=== PATIENT | female | born 1955 | race Caucasian/White ===

== ENCOUNTER 2020-09-29 12:18 | Outpatient (CLI) | payer SELFPAY ==
[2020-09-29 13:32] LABS: SARS-CoV-2 Ag Negative (Negative)
== END 2020-09-29 12:19 | disposition home or self-care (01) ==
LOC: CHSLAB 12:21
PROVIDERS: PCP Family Medicine; Visit Provider Family Medicine
DX: Z20.828 Contact with and (suspected) exposure to other viral communicable diseases (principal)
CPT/HCPCS: 87426

== ENCOUNTER 2021-11-01 15:51 | Outpatient (RCR) | payer MEDICARE, SELFPAY ==
--- NOTE | 2021-11-01 17:21 | PTOPEVAL ---
Thank you for referring Wendy Myles to [facility] [place].? The patient is scheduled to be seen for therapy? ___3_x/week for 12 visits. Please review, sign, date and return this plan of care MAVERICK. I agree with and certify that the following plan of care is medically necessary. Referring Physician Date Admitting Provider: Attending Provider: Rosalina Solis, BACTERIOLOGIST INDUSTRIAL Referring Provider: *PT Outpatient Evaluation Start: 11/01/21 16:03 Freq: Status: Active Protocol: Document 11/01/21 16:03 VANESSA (Rec: 11/01/21 17:20 VANESSA [id number]) Therapy Assessment Status Assessment Status Assessment Status Evaluation Evaluation Information Problem Diagnosis closed fracture of distal end of the right fibula Onset 09/17/21 Subjective Information Pt. reports on 09/17/21 she Query Text:As Reported By Patient/ fell down her steps while Family trying to see an eclipse outside. She reports that she was in a cast until 10/18/21. She reports she was non WB for this time. She reports that most pain is through the right knee with WB. She reports that she does take Tylenol for pain. She reports that her goal for therpay is to be able to walk normally. Prior Level of Function Activity Level (Last 3 Months) Occupation daycare Hand Dominance Right Activity of Daily Living Ability Independent Indoor/Home Mobility Independent Community Mobility Independent Stairs Ability Independent Functional Cognition (Planning, Shopping Independent , Taking Medications) Cooking Yes Cleaning Yes Laundry Yes Shopping Yes Driving Yes Comments Additional Prior Level of Function Pt. manages a daycare. She is Comments currently walking with crutches. Pain Assessment Timing of Pain Assessment Timing of Pain Assessment Pre-Treatment Pain Scale Pain Scale Used Numeric (1 - 10) Self Report Pain Assessment Right Ankle(s) Reported Pain Level 3 Right Knee(s) Reported Pain Level 10 Pain Description Aching,Burning Greatest Pain Intensity 10 Pain Score Pain Score 10,3: Self Report Interventions Used Interventions Used By Clinicians Activity or ADL's,Exercise Lower
--- NOTE | 2021-12-13 09:24 | PCPTNOTE ---
Mrs. Myles attended a total of 4 treatment sessions from 11/01/21 to 11/09/21. She contacted the clinic via telephone stating that she was doing much better and request discharge. Refer to pt. last daily note for discharge status.
== END 2021-11-09 10:37 | disposition home or self-care (01) ==
LOC: CHSPT 15:51
PROVIDERS: PCP Family Medicine; Visit Provider Nurse Practitioner Family
DX: S82.831D Other fracture of upper and lower end of right fibula, subsequent encounter for closed fracture with routine healing (principal)
CPT/HCPCS: 97014; 97110; 97140; 97161; G0283

== ENCOUNTER 2024-06-03 02:00 | Emergency (ER) | payer MEDICARE, SELFPAY ==
[2024-06-03] VITALS (56 sets, daily range): BP systolic 67–165; BP diastolic 58–121; PULSE 81–128; RESP 12–27; TEMP 36.3; O2SAT 92–99
--- NOTE | ~2024-06-03 | XR_ITS ---
Clinical Indication: Chest pain PA and lateral views of the chest: Comparison: 05/25/2008 Findings: The lungs are clear, without evidence of focal consolidation or pleural effusion. Cardiome diastinal silhouette is within normal limits. Bones and soft tissues are unremarkable. Impression: Normal chest. Reviewed, dictated and finalized at location . Impression: Normal chest.
--- NOTE | ~2024-06-03 | CT_ITS ---
Clinical Indication: Chest pain CT Scan of the Chest with Contrast: Technique: Contiguous sections were acquired throughout the chest after intravenous administration of 100 cc of Omnipaque 350. Dose reduction technique was used on this scan by utilizing automated expos ure control and iterative reconstruction technique. The dose-length product (DLP) was 414.64 mGy-cm. Findings: There is no evidence of any significant mediastinal, hilar or axillary lymphadenopathy. There is no f illing defect in the pulmonary arterial tree to suggest pulmonary embolus. There is no evidence of ao rtic dissection or aneurysm. There is no evidence of pleural or pericardial effusion. The lungs are clear, aside from probable minimal dependent hypoventilatory/atelectatic changes. Images through the upper abdomen reveal no abnormalities. Impression: No evidence of pulmonary embolus, aortic dissection, or aortic aneurysm. No significant pulmonary abnormality evident. Reviewed, dictated and finalized at [facility]. Impression: No evidence of pulmonary embolus, aortic dissection, or aortic aneurysm. No significant pulmonary abnormality evident.
--- NOTE | 2024-06-03 02:02 | ECG_ITS ---
Test Date: 2024-06-03 02:13:35 Measurements Intervals [place] Rate: 104 P: 41 [place]: 153 QRS: -2 QRSD: 138 T: 130 QT: 371 QTc: 490 Interpretive Statements SINUS TACHYCARDIA WITH OCCASIONAL VENTRICULAR PREMATURE COMPLEXES LEFT BUNDLE BRANCH BLOCK [120+ ms QRS DURATION, 80+ ms Q/S IN V1/V2, 85+ ms R IN I/aVL/V5/V6] No previous ECG available for comparison Electronically Signed On 06-04-2024 14:32:02 CDT by Kimmy Torres M.D.
--- NOTE | 2024-06-03 02:04 | ED.CHESTPAIN ---
HPI - Chest Pain General Chief Complaint: Chest Pain Stated Complaint: chest pain Time Seen by Provider: 06/03/24 02:02 Source: patient Mode of arrival: ambulatory Limitations: no limitations History of Present Illness HPI narrative: Patient is a 69-year-old female with some chest pain starting yesterday. It is on and off and happens in interior substernal chest wall and some pain in the midback. Patient has Wegners granulomatosis. MD complaint: chest pain Onset (ago): day(s) (2) Timing of current episode: episodic Prior episodes: Yes Onset: during rest, during exertion and awoke with symptoms Pain location: substernal Pain radiation: back Severity: moderate Pain scale (0-10): 6 Quality: tightness and sharp Relieving factors: nothing Exacerbating factors: nothing Associated symptoms: sense of impending doom Treatment prior to arrival: none Risk Factors Coronary artery disease risk factors: none Thoracic aortic dissection risk factors: none Related Data On Oral Contraceptives: No Home Medications Medication Instructions Recorded Confirmed levothyroxine 75 mcg tablet 75 mcg PO DAILY 06/03/24 06/03/24 liothyronine 5 mcg tablet 5 mcg PO BID 06/03/24 06/03/24 losartan 50 mg tablet 50 mg PO DAILY 06/03/24 06/03/24 omeprazole 20 mg capsule,delayed 20 mg PO DAILY 06/03/24 06/03/24 release Allergies Allergy/AdvReac Type Severity Reaction Status Date / Time DONI Inhibitors Allergy Intermediate cough Verified 05/06/13 12:22 Review of Systems Review of Systems: All systems reviewed & are unremarkable except as noted in HPI and below Constitutional: Constitutional: Reports no additional constitutional complaints Eyes: Eyes: Reports no additional eye complaints ENT: Reports system reviewed and no additional complaints, except as documented Cardiovascular: Cardiovascular: Reports no additional cardiovascular complaints Respiratory: Respiratory: Reports no additional respiratory complaints Gastrointestinal: Gastrointestinal: Reports no additional gastrointestinal complaints Genitourinary: Genitourinary: Reports no additional female genitourinary complaints Musculoskeletal: Musculoskeletal: Reports no additional musculoskeletal complaints Integumentary/Breasts: Skin/Breast: Reports system reviewed and no additional complaints, except as docu Neurologic: Reports system reviewed and no additional complaints, except as documented Psychiatric: Psychiatric: Reports no additional psychiatric complaints Endocrine: Endocrine: Reports no additional endocrine complaints Hematologic/Lymphatic: Hematologic/Lymphatic: Reports no additional hematologic/lymphatic complaints Allergic/Immunologic: Allergic/Immunologic: Reports no additional allergic/immunologic complaints Exam Const: General: healthy appearing Nutritional Appearance: well nourished Orientation/consciousness: patient oriented x3 HENMT: Head: normal to inspection Ears: external ears normal Face/Nose/Sinus: Normal external nose present Eyes: Conjunctivae: conjunctivae normal Pupils: Equal, round and reactive pupils present EOM: EOMs intact bilaterally Neck: Neck: normal visual inspection Chest: Chest palpation & inspection: normal inspection of the chest Resp: Effort & Inspection: normal respiratory effort and not labored Auscultation: clear to auscultation bilaterally Cardio: Rate: tachycardic Rhythm: regular rhythm Heart sounds: no murmurs GI: Inspection: non-distended Auscultation: normal bowel sounds and bowel sounds present : General: Yes bladder normal to palpation Back/Spine/Pelvis: Back: no CVA tenderness Skin: General skin exam: normal color Rashes: no rashes Wounds: no wounds Neuro: General: patient oriented x3 Cranial nerves: Yes Nystagmus not present Speech: normal speech Extrem: General: normal to inspection Psych: Mental Status: mental status grossly normal Affect: Anxious affect present Attitude: cooperative
[2024-06-03 02:38] LABS: Basophils Absolute Auto 0.04 K/mm3 (0.00-0.10); Basophils Percent Auto 0.5 % (0.0-1.0); Eosinophils Absolute Auto 0.18 K/mm3 (0.02-0.50); Eosinophils Percent Auto 2.4 % (1.0-6.0); Hematocrit 42.5 % (35.0-42.0); Hemoglobin 14.4 g/dL (11.7-13.8); Immature Granulocyte Absolute 0.02 K/mm3 (0.00-0.00); Immature Granulocyte Percent A 0.3 % (0.0-0.0); Lymphocytes Absolute Auto 2.36 K/mm3 (1.10-4.50); Lymphocytes Percent Auto 31.6 % (18.0-42.0); Mean Corpuscular HGB Conc 33.9 g/dL (32-36); Mean Corpuscular Hemoglobin 29.4 pg (27.0-31.0); Mean Corpuscular Volume 86.9 fL (78.0-102.0); Monocytes Absolute Auto 0.61 K/mm3 (0.10-0.90); Monocytes Percent Auto 8.2 % (2.0-11.0); Neutrophils Absolute Auto 4.27 K/mm3 (1.70-7.20); Platelet Count Result 293 K/mm3 (150-420); Red Blood Count 4.89 M/mm3 (4.20-5.40); Red Cell Distribution Width 12.6 % (11.6-14.4); White Blood Count 7.5 K/mm3 (4.8-10.8)
[2024-06-03] MEDS: NITROGLYCERIN SL 0.4 MG TABLET SUBLINGUAL (02:39)
--- NOTE | 2024-06-03 02:42 | PC.NURSE ---
Pt back from Xray, still c/o chest pain to Lt breast area. Pt given Nitro SL 0.4 mg as per order, explained POC to pt and wait times for labs. Pt stated understanding, call rosales at side, continuing to monitor.
[2024-06-03 02:55] LABS: D Dimer 0.42 mg/L (0.19-0.50); INR 0.9; Partial Thromboplastin Time 25.8 Sec (23.9-30.70); Prothrombin Time 10.2 Seconds (9.50-12.1)
[2024-06-03 03:43] LABS: Alanine Aminotransferase 14 U/L (6-35); Albumin Level 4.3 g/dL (3.5-5.1); Alkaline Phosphatase 89 U/L (38-126); Anion Gap 8 mmol/L (4-12); Aspartate Amino Transferase 37 U/L (14-36); Bilirubin,Total 0.8 mg/dL (0.2-1.3); Blood Urea Nitrogen 20 mg/dL (7-17); Calcium 9.8 mg/dL (8.4-10.2); Carbon Dioxide 25 mmol/L (22-30); Chloride 103 mmol/L (98-107); Estimated CRCL calculation 44 ml/min; Estimated Glomerular Filt Rate 49; Glucose 107 mg/dL (65-110); Lipase 170 U/L (23-300); Osmolality Calculated 284 mOsm/kg (285-295); Potassium 3.7 mmol/L (3.4-5.0); Sodium 136 mmol/L (137-145); Troponin I < 0.012 ng/mL (0.000-0.034)
[2024-06-03 04:42] LABS: NT Pro B Type Natriuretic Pept 678 pg/mL (19.9-100)
--- NOTE | 2024-06-03 04:42 | PC.NURSE ---
Addendum entered by Karina Parisi RN 06/03/24 06:50: Monitor shows SR w/ HR 86, VSS. Pt reports no pain at this time Original Note: Pt resting w/ lights dimmed, awaiting CT scan results, pt states pain is better, Monitor shows Afib w/ HR 86 at this time. VSS, call rosales at pt side.
--- NOTE | 2024-06-03 05:15 | PC.NURSE ---
Pt resting, continuing to monitor, Monitor shows Afib w/ rate controlled at 80. VSS at this time. Awaiting CT results and call rosales at pt side.
[2024-06-03 05:29] LABS: Magnesium 1.9 mg/dL (1.6-2.3)
--- NOTE | 2024-06-03 05:30 | PC.NURSE ---
Pt noted on monitor ST w/ LBBB and controlled HR at 80 at this time. Pt resting and continuing to await CT results.
--- NOTE | 2024-06-03 06:15 | PC.NURSE ---
POC discussed w/ pt and she wants transfer to processing lead at [place]. Monitor continues to show SR w/ LBBB and occasional PVC. Pt resting at this time, continuing to monitor.
[2024-06-03] MEDS: ASPIRIN 81 MG CHEWABLE TABLET 324 MG PO (06:41)
--- NOTE | 2024-06-03 07:08 | PC.NURSE ---
Report given to Justin Pappas and Justin Carr Pt resting, POC discussed for transfer and awaiting call back from [place].
--- NOTE | 2024-06-03 07:22 | ECG_ITS ---
Test Date: 2024-06-03 07:37:52 Measurements Intervals [place] Rate: 92 P: 25 [place]: 148 QRS: 42 QRSD: 137 T: 207 QT: 389 QTc: 483 Interpretive Statements SINUS RHYTHM LEFT BUNDLE BRANCH BLOCK [120+ ms QRS DURATION, 80+ ms Q/S IN V1/V2, 85+ ms R IN I/aVL/V5/V6] Compared to ECG 06/03/2024 02:13:35 NO SIGNIFICANT CHANGES Electronically Signed On 06-04-2024 14:33:04 CDT by Kimmy Torres M.D.
--- NOTE | 2024-06-03 07:38 | PC.NURSE ---
Spoke to Chetan in the kitchen to order regular breakfast tray for pt.
--- NOTE | 2024-06-03 07:56 | PC.NURSE ---
Pt resting comfortably. No concerns at this time.
--- NOTE | 2024-06-03 09:02 | PC.NURSE ---
Pt finished with her breakfast tray. Gave her glass of water. Discussed that we are waiting on bed at [place].
--- NOTE | 2024-06-03 11:22 | PC.NURSE ---
Pt resting comfortably, watching tv. No complaints at this time.
--- NOTE | 2024-06-03 12:47 | PC.NURSE ---
Pt resting comfortably. Family at bedside. Pt received lunch tray.
[2024-06-03 13:30] LABS: Troponin I < 0.012 ng/mL (0.000-0.034)
--- NOTE | 2024-06-03 14:16 | PC.NURSE ---
Pt ambulated to bathroom.No difficulties.
--- NOTE | 2024-06-03 14:33 | PC.NURSE ---
Moved pt to hospital bed for comfort. Son at bedside.
--- NOTE | 2024-06-03 16:50 | PC.NURSE ---
Pt resting comfortably. Son at bedside.
[2024-06-03 16:53] LABS: Troponin I < 0.012 ng/mL (0.000-0.034)
== END 2024-06-03 17:43 | disposition home or self-care (01) ==
PROVIDERS: Emergency Medicine; Emergency Provider Emergency Medicine; PCP Family Medicine
DX: I20.9 Angina pectoris, unspecified (principal); R94.31 Abnormal electrocardiogram [ECG] [EKG]; Z79.899 Other long term (current) drug therapy
CPT/HCPCS: 36415; 71046; 71275; 80053; 83690; 83735; 83880; 84484; 85025; 85380; 85610; 85730; 93005; 99284; A9270; Q9967

== ENCOUNTER 2024-11-05 12:45 | Emergency (ER) | payer MEDICARE, SELFPAY ==
[2024-11-05] VITALS (19 sets, daily range): BP systolic 86–121; BP diastolic 52–87; PULSE 71–99; RESP 11–22; TEMP 36.4; O2SAT 91–100
--- NOTE | ~2024-11-05 | CT_ITS ---
EXAMINATION: CT brain wo con DATE: 11/05/2024 12:58 INDICATION: Acute left eye blurriness. Vision change. TECHNIQUE: Computed tomography (CT) of the head was performed without intravenous contrast. The mA wa s adjusted according to patient size. Iterative reconstruction technique was employed. The dose-lengt h product was 681.00 mGy-cm. COMPARISON: None FINDINGS: There are scattered areas of low attenuation in the cerebral white matter, which is within normal limits for the patient's age. There is no intracranial hemorrhage, acute infarction, or abnorm al intracranial mass lesion. The ventricles are normal in size. There are likely changes of ocular le ns replacement surgeries. There is mucosal thickening in the paranasal sinuses. There is a small left mastoid effusion. IMPRESSION: 1. Normal aging brain. Reviewed, dictated and finalized at location A. E SPECIALIST IMPRESSION: 1. Normal aging brain.
--- NOTE | 2024-11-05 12:46 | ECG_ITS ---
Test Date: 2024-11-05 13:05:21 Measurements Intervals [place] Rate: 95 P: 93 [place]: 153 QRS: 74 QRSD: 86 T: 60 QT: 348 QTc: 438 Interpretive Statements SINUS RHYTHM WITH FREQUENT VENTRICULAR PREMATURE COMPLEXES ABNORMAL RHYTHM ECG Compared to ECG 06/03/2024 07:37:52 Ventricular premature complex(es) now present Left bundle-branch block no longer present Electronically Signed On 11-05-2024 17:44:47 TRANSPORTATION DISPATCHER by Kimmy Torres M.D.
[2024-11-05 12:59] LABS: Hematocrit 34.2 % (35.0-42.0); Immature Platelet Fraction Pct 0.6 % (1.0-7.0); Mean Corpuscular HGB Conc 32.2 g/dL (32-36); Mean Corpuscular Hemoglobin 27.9 pg (27.0-31.0); Mean Corpuscular Volume 86.8 fL (78.0-102.0); Mean Platelet Volume 8.6 fl (9.2-11.8); Platelet Count Result 601 K/mm3 (150-420); Red Blood Count 3.94 M/mm3 (4.20-5.40); Red Cell Distribution Width 13.2 % (11.6-14.4); White Blood Count 15.1 K/mm3 (4.8-10.8)
[2024-11-05 13:10] LABS: Partial Thromboplastin Time 30.7 Sec (23.9-30.70); Prothrombin Time 11.1 Seconds (9.50-12.1)
[2024-11-05 13:16] LABS: Alanine Aminotransferase 76 U/L (14-59); Albumin Level 1.8 g/dL (3.4-5.0); Alkaline Phosphatase 105 U/L (46-116); Anion Gap 12 mmol/L (4-12); Aspartate Amino Transferase 111 U/L (15-37); Bilirubin,Total 0.4 mg/dL (0.00-1.00); Blood Urea Nitrogen 37 mg/dL (7-18); Calcium 8.9 mg/dL (8.5-10.1); Carbon Dioxide 23 mmol/L (21-32); Chloride 99 mmol/L (98-108); Estimated CRCL calculation 25 ml/min; Estimated Glomerular Filt Rate 25; Glucose 105 mg/dL (70-99); Osmolality Calculated 286 mOsm/kg (285-295); Potassium 4.3 mmol/L (3.5-5.1); Sodium 134 mmol/L (136-145); Total Protein 6.5 g/dL (6.4-8.2); Troponin I 30.6 ng/L (0.00-60.4)
--- NOTE | 2024-11-05 13:25 | ED_ITS ---
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 felt like she could not chew on the right side of her jaw. The at her hurt. Denies any chest pain shortness of breath she said she broke out in a sweat said she had to change her clothes twice and then she started having blurred vision just before the ambulance to arrived in her left eye. She feels tired her body with whole feels heavy. Denies any numbness or focal weakness dizziness swelling lumps or bumps problems voiding. She has been constipated denies any blood in her stool or black stools. Denies any problems walking talking hearing. She has a history of recent pneumonia at walking pneumonia and was seen a week and half ago for this and placed on antibiotic. She has a history of a arrhythmia is on metoprolol. She has a history of Candido's granulomatosis, chronic kidney disease hypertension hyperlipidemia vitamin-D deficiency left bundle branch block and anemia. No known drug allergies Related Data Home Medications ?Medication ?Instructions ?Recorded ?Confirmed ?Last Taken ?Type levothyroxine 75 mcg tablet 75 mcg PO DAILY 06/03/24 11/05/24 Unknown History losartan 50 mg tablet 50 mg PO DAILY 06/03/24 11/05/24 Unknown History albuterol sulfate 2.5 mg/3 mL mg inhalation Q4-6H PRN shortness 11/05/24 Unknown History (0.083 %) solution for nebulization of breath or wheezing cefuroxime axetil 500 mg tablet 500 mg PO BID 11/05/24 11/05/24 Unknown History metoprolol succinate 25 mg 25 mg PO DAILY 11/05/24 11/05/24 Unknown History tablet,extended release 24 hr Allergies Allergy/AdvReac Type Severity Reaction Status Date / Time DONI Inhibitors Allergy Intermediate cough Verified 11/05/24 13:10 Review of Systems 2 Review of Systems: All systems reviewed & are unremarkable except as noted in HPI and below PMFSH Surgical History Surgical History (Updated 11/05/24 @ 17:26 by Keny Cruz MD) History of cataract surgery Comments Past medical history arrhythmia pneumonia Candido's, chronic kidney disease hypertension hyperlipidemia D3 deficiency left bundle branch block anemia Exam 2 Narrative: White female patient with no apparent distress.? Head normocephalic, atraumatic.? Eyes conjunctiva pink sclera nonicteric.? Extraocular movements are intact.? Ears externally normal.? TMs are normal. ?Oropharynx is clear with moist mucous membranes without exudates.? Neck is supple nontender no lymphadenopathy.? Back is nontender.? Lungs are clear.? Heart is regular rate and rhythm without murmurs gallops or rubs.? Chest wall nontender. Abdomen is soft and nontender no hepatosplenomegaly or masses no CVA tenderness no abdominal bruits.? Extremities no cyanosis clubbing or edema.? Skin is warm and dry without rashes or lesions.? Neurological patient is alert and oriented x4.? motor: Left sided facial weakness including the forehead, left eye ptosis.? Gait is normal. she may have a left eye lateral defect in her vision.NIH stroke scale of 4 . Course Vital Signs Vital signs: Vital Signs Pulse Rate 99 11/05/24 12:46 Respiratory Rate 16 11/05/24 12:46 Blood Pressure 111/87 11/05/24 12:46 Oxygen Delivery Room Air 11/05/24 12:46 Temperature 36.4 C 11/05/24 13:04 Pulse Rate 80 11/05/24 16:02 Respiratory Rate 15 11/05/24 16:02 Blood Pressure 109/57 L 11/05/24 16:02 Pulse Oximetry 100 11/05/24 16:02 Oxygen Delivery Room Air 11/05/24 13:04 Medical Decision Making [facility] Narrative Medical decision making narrative: ?Patient placed in room: 7 With her son and ex- ? History and physical was performed. Troponin was normal as was 2 hour troponin. WBCs 15.1, H&H 11 and 34.2. Platelets 601. BUN 37 creatinine 1.95 sodium 134 glucose 105 AST 111 ALT 76 albumin 1.8 the rest of the CMP was normal coags were normal CT head was negative COVID positive, RSV flu negative Independent Historian: family ex- EMS External Source Review: mode EKG reviewed which shoulder left bundle-branch block Differential Dx includes but not limited to: stroke myocardial infarction TIA flu RSV COVID Medications were Reviewed: home meds reviewed Medications given: normal saline 1 L, baby aspirin 324 chewable Independently Interpreted by me: EKG shows sinus rhythm with first-degree AV block occasional supraventricular premature complex interventricular conduction delay LVH ( patient has a history of previous left bundle branch block. ) impression abnormal EKG as independently interpreted by me. Shared decision Making: evaluation discussed all questions were asked and answered patient and family agreed with the plan. Social Situation Impacting Patients Care: Discussed with neurologist at [facility] accepted to [facility] for today she will have to be on a waiting list. Neurologist said there was no acute intervention needed at this time. No head mva reactor operator will try looking for a bed at [facility] (no beds ) Discussed with Dr. Bhatt at [facility] ( Wendy the head mva reactor operator) recommended CTA head neck with IV contrast this is discussed with family and we have elected not to do this test at this time rather give her some hydration 1st. Discussed with [facility] head mva reactor operator said call her back with a 2nd troponin. Discussed with Dr. Torres farm supervisor at [facility] After he was sent the EKG and had chance to examine it. Both troponins are normal. He said no interventions are needed now but she should follow-up with cardiology As an outpatient. Dr. Torres call back to schedule an outpatient appointment with her in his farm supervisor office for tomorrow. Dr. Harper neurology from [facility] in [place] would accept her to their hospitalist. as discussed at 4:[address] p[address] Galvez hospitalist at [facility] in [place] accepted patient in transfer. They will call us back with a bed number shortly recommended giving her aspirin [address] Bhatt accepts to [facility] couple days before they get a bed. DISCHARGE DIAGNOSIS: acute left blurred vision, jaw pain /diaphoresis. COVID POSITIVE DISPOSITION : Transfer to [facility] CONDITION AT DISCHARGE: stable Vital Signs Vital Signs: Vital Signs Pulse Rate 99 11/05/24 12:46 Respiratory Rate 16 11/05/24 12:46 Blood Pressure 111/87 11/05/24 12:46 Oxygen Delivery Room Air 11/05/24 12:46 Temperature 36.4 C 11/05/24 13:04 Pulse Rate 80 11/05/24 16:02 Respiratory Rate 15 11/05/24 16:02 Blood Pressure 109/57 L 11/05/24 16:02 Pulse Oximetry 100 11/05/24 16:02 Oxygen Delivery Room Air 11/05/24 13:04 Lab Data 11/05/24 12:46 11/05/24 12:47 Labs: Lab Results 11/05/24 11/05/24 11/05/24 Range/Units 12:46 12:47 13:40 WBC 15.1 H (4.8-10.8) K/mm3 RBC 3.94 L (4.20-5.40) M/mm3 Hgb 11.0 L (11.7-13.8) g/dL Hct 34.2 L (35.0-42.0) % MCV 86.8 (78.0-102.0) fL MCH 27.9 (27.0-31.0) pg MCHC 32.2 (32-36) g/dL RDW 13.2 (11.6-14.4) % Plt Count 601 H (150-420) K/mm3 MPV 8.6 L (9.2-11.8) fl % Immature Plt Fraction 0.6 L (1.0-7.0) % PT 11.1 (9.50-12.1) Seconds INR 1.0 APTT 30.7 (23.9-30.70) Sec Sodium 134 L (136-145) mmol/L Potassium 4.3 (3.5-5.1) mmol/L Chloride 99 (98-108) mmol/L Carbon Dioxide 23 (21-32) mmol/L Anion Gap 12 (4-12) mmol/L BUN 37 H (7-18) mg/dL Creatinine 1.95 H (0.55-1.02) mg/dL Estim Creat Clear Calc 25 ml/min Estimated GFR 25 L (59 - ) Glucose 105 H (70-99) mg/dL Calculated Osmolality 286 (285-295) mOsm/kg Calcium 8.9 (8.5-10.1) mg/dL Total Bilirubin 0.4 (0.00-1.00) mg/dL AST 111 H (15-37) U/L ALT 76 H (14-59) U/L Alkaline Phosphatase 105 (46-116) U/L Troponin I 30.6 (0.00-60.4) ng/L Total Protein 6.5 (6.4-8.2) g/dL Albumin 1.8 L (3.4-5.0) g/dL Influenza A (RT-PCR) Negative (Negative) Influenza B (RT-PCR) Negative (Negative) RSV (RT-PCR) Negative (Negative) SARS-CoV-2 RNA (RT-PCR) Positive A (Negative) 11/05/24 Range/Units 14:56 WBC (4.8-10.8) K/mm3 RBC (4.20-5.40) M/mm3 Hgb (11.7-13.8) g/dL Hct (35.0-42.0) % MCV (78.0-102.0) fL MCH (27.0-31.0) pg MCHC (32-36) g/dL RDW (11.6-14.4) % Plt Count (150-420) K/mm3 MPV (9.2-11.8) fl % Immature Plt Fraction (1.0-7.0) % PT (9.50-12.1) Seconds INR APTT (23.9-30.70) Sec Sodium (136-145) mmol/L Potassium (3.5-5.1) mmol/L Chloride (98-108) mmol/L Carbon Dioxide (21-32) mmol/L Anion Gap (4-12) mmol/L BUN (7-18) mg/dL Creatinine (0.55-1.02) mg/dL Estim Creat Clear Calc ml/min Estimated GFR (59 - ) Glucose (70-99) mg/dL Calculated Osmolality (285-295) mOsm/kg Calcium (8.5-10.1) mg/dL Total Bilirubin (0.00-1.00) mg/dL AST (15-37) U/L ALT (14-59) U/L Alkaline Phosphatase (46-116) U/L Troponin I 28.1 (0.00-60.4) ng/L Total Protein (6.4-8.2) g/dL Albumin (3.4-5.0) g/dL Influenza A (RT-PCR) (Negative) Influenza B (RT-PCR) (Negative) RSV (RT-PCR) (Negative) SARS-CoV-2 RNA (RT-PCR) (Negative) Discharge Plan Discharge Clinical Impression: Blurred vision, left eye, Jaw pain, COVID Patient Disposition: Acute Care Hospital Condition: Stable Additional Instructions: [facility] [place] to hospitalist Dr. Galvez via ground ambulance Patient Language: Sami Prescriptions: No Action albuterol sulfate 2.5 mg /3 mL (0.083 %) solution for nebulization inhalation Q4-6H PRN (Reason: shortness of breath or wheezing) cefuroxime axetil 500 mg tablet 500 mg PO BID metoprolol succinate 25 mg tablet extended release 24 hr 25 mg PO DAILY losartan 50 mg tablet 50 mg PO DAILY levothyroxine 75 mcg tablet 75 mcg PO DAILY nitroglycerin 0.4 mg tablet, sublingual 0.4 mg sublingual Q5M PRN (Reason: chest pain) Qty: 30 0RF Rx Instructions: do not exceed 3 doses per episode Follow-up/Referrals: UNKNOWN,DOCTOR [Non-Staff] -
[2024-11-05] MEDS: SODIUM CHLORIDE 0.9% IV 1,000 ML 999 ML IV CONT (13:54)
[2024-11-05 14:52] LABS: Influenza A QL RT-PCR Negative (Negative); Influenza B QL RT-PCR Negative (Negative); SARS-CoV-2 RNA PCR Positive (Negative)
[2024-11-05 14:53] LABS: RSV RNA, RT-PCR Negative (Negative)
--- NOTE | 2024-11-05 15:13 | PC.NURSE ---
PT IS LYING ON STRETCHER TALKING WITH FAMILY AT THIS TIME. PT HAS BEEN NOTIFIED THAT SHE IS COVID +, FAMILY IS AWARE. PT IS AWAITING RESULTS OF LABS AT THIS TIME. PT DENIES ANY OTHER NEEDS OR COMPLAINTS AT THIS TIME. NAD NOTED. WILL CONTINUE TO MONITOR.
[2024-11-05 15:20] LABS: Troponin I 28.1 ng/L (0.00-60.4)
--- NOTE | 2024-11-05 15:59 | PC.NURSE ---
PT REPORTS VISION HAS IMPROVED, HOWEVER HAS NOT RETURNED TO NORMAL. PT'S SKIN IS NOW DRY AND PINK. COLOR HAS IMPROVED. PT IS AWAITING ACCEPTANCE AT ANOTHER FACILITY. FAMILY REMAIN AT BEDSIDE. WILL CONTINUE TO MONITOR. NAD NOTED. PT DENIES ANY NEEDS OR COMPLAINTS. WARM BLANKETS WERE PROVIDED.
--- NOTE | 2024-11-05 17:07 | PC.NURSE ---
PT HAS BEEN ACCEPTED AT [facility] IN [place], AWAITING ROOM ASSIGNMENT AT THIS TIME. PT DENIES ANY NEEDS OR COMPLAINTS AND IS AWARE OF PLAN OF CARE. NAD NOTED. VSS. FAMILY AT BEDSIDE. WILL CONTINUE TO MONITOR.
[2024-11-05] MEDS: ASPIRIN 81 MG CHEWABLE TABLET 324 MG PO (17:26)
[2024-11-06 02:20] LABS: Glucose Point of Care 98 mg/dl (65-105)
== END 2024-11-05 18:21 | disposition short-term general hospital (02) ==
PROVIDERS: Emergency Provider Emergency Medicine; PCP Family Medicine
DX: U07.1 COVID-19 (principal); H53.8 Other visual disturbances; R68.84 Jaw pain; I12.9 Hypertensive chronic kidney disease with stage 1 through stage 4 chronic kidney disease, or unspecified chronic kidney disease; N18.9 Chronic kidney disease, unspecified; E78.5 Hyperlipidemia, unspecified; I44.7 Left bundle-branch block, unspecified; E55.9 Vitamin D deficiency, unspecified; Z79.51 Long term (current) use of inhaled steroids
CPT/HCPCS: 36415; 70450; 80053; 82948; 84484; 85027; 85055; 85610; 85730; 87637; 93005; 96360; 99285; A9270; J7030

== ENCOUNTER 2025-01-01 08:40 | Outpatient (RCR) | payer MEDICARE, SELFPAY ==
[2025-01-01 09:03] LABS: Hematocrit 36.1 % (35.0-42.0); Hemoglobin 11.5 g/dL (11.7-13.8); Mean Corpuscular HGB Conc 31.9 g/dL (32-36); Mean Corpuscular Hemoglobin 29.6 pg (27.0-31.0); Mean Corpuscular Volume 92.8 fL (78.0-102.0); Mean Platelet Volume 8.9 fl (9.2-11.8); Platelet Count Result 399 K/mm3 (150-420); Red Blood Count 3.89 M/mm3 (4.20-5.40); Red Cell Distribution Width 16.7 % (11.6-14.4); White Blood Count 9.8 K/mm3 (4.8-10.8)
[2025-01-01 09:52] LABS: Microalbumin Urine Random 185.5 mg/L
[2025-01-01 10:08] LABS: Anion Gap 7 mmol/L (4-12); Blood Urea Nitrogen 31 mg/dL (7-18); Calcium 9.2 mg/dL (8.5-10.1); Carbon Dioxide 31 mmol/L (21-32); Chloride 99 mmol/L (98-108); Estimated Glomerular Filt Rate 39; Glucose 90 mg/dL (70-99); Osmolality Calculated 290 mOsm/kg (285-295); Phosphorus 3.2 mg/dL (2.6-4.7); Sodium 137 mmol/L (136-145)
[2025-01-07 12:03] LABS: ANCA Screen NEGATIVE (NEGATIVE)
== END 2025-04-01 23:59 | disposition home or self-care (01) ==
LOC: CHSLAB 08:40
PROVIDERS: PCP Family Medicine; Visit Provider Internal Medicine Nephrology
DX: N18.30 Chronic kidney disease, stage 3 unspecified (principal)
CPT/HCPCS: 36415; 80069; 82043; 85027; 86036